=== PATIENT | female | born 1980 | race Caucasian/White ===

== ENCOUNTER 2024-08-31 08:32 | Emergency (ER) | payer SELFPAY ==
[2024-08-31] MEDS: Benzocaine 20% Topical Spray UD MUCMEM ONE (10:36)
[2024-08-31] MEDS: Lidocaine 2% Viscous Solution 15 ML UD PO ONE (10:36)
== END 2024-08-31 10:48 | disposition home or self-care (01) ==
LOC: MW.ED 08:32
DX: K04.7 Periapical abscess without sinus (principal); F17.210 Nicotine dependence, cigarettes, uncomplicated; Z90.49 Acquired absence of other specified parts of digestive tract; Z88.0 Allergy status to penicillin; Z88.8 Allergy status to other drugs, medicaments and biological substances; Z79.899 Other long term (current) drug therapy; Z75.8 Other problems related to medical facilities and other health care
CPT/HCPCS: 99283; A9270